=== PATIENT | male | born 1970 | race Caucasian/White ===

== ENCOUNTER 2020-07-05 20:10 | Emergency (ER) | payer BC ==
[2020-07-05 20:16] VITALS: BP 136/108; PULSE 71
[2020-07-05] MEDS ORDERED: HYDROmorphone 0.5 MG/0.5 ML Syringe IVPUSH ONE ×2 (21:32→22:37)
[2020-07-05] MEDS ORDERED: Lidocaine 1% 10 ML MDV INJECT ONE (21:32)
--- NOTE | 2020-07-05 21:38 | EDM.PDOC ---
ED HPI GENERAL MEDICAL PROBLEM - General Chief Complaint: Head Injury Stated Complaint: [facility] Time Seen by Provider: 07/05/20 21:19 Source of Information: Reports: Patient, RN Notes Reviewed History Limitations: Reports: No Limitations - History of Present Illness INITIAL COMMENTS - FREE TEXT/NARRATIVE: Patient is a 49-year-old male who is brought into the ER tonight by [facility] for the evaluation of a head injury. Patient states that he was at home, standing on a 3 foot ladder, trying to get a bird out of the garage, when he slipped and fell onto the garage floor. He hit the back of his head on the cement floor in the garage, he thinks that this was about 8 or 9 foot fall. He states that he did have a loss of consciousness, and notes that his found him on the floor in a pool of blood. notes that he was out for maybe 5 or 10 minutes, she is not really sure how he fell, but states that his left elbow does hurt as well. She did call the ambulance, they brought him here for evaluation. He did have a cervical collar in place, he is complaining of mild posterior neck pain. Patient is alert and oriented x3. He states he does have a headache, and does also have some pain in the area of the laceration on the back of his head. This is more of a stellate laceration. Not actively bleeding at this time. Patient does like to drink alcohol, states he did have 5 or 6 beers tonight. He states he does drink on a nightly basis. He denies any numbness or tingling into his extremities. He has no focal neurological deficits appreciated on initial exam. He further denies any fever/chills, cough/shortness of breath, nausea/vomiting/diarrhea. Treatments LEGAL INVESTIGATOR: Reports: IV/IO Posterior Headache Pain Score (Numeric/FACES): 8 - Related Data Allergies Allergy/AdvReac Type Severity Reaction Status Date / Time bee venom protein (honey bee) Allergy Anaphylactic Verified 07/05/20 20:16 Shock Penicillins Allergy Cannot Verified 07/05/20 20:16 Remember Home Meds: Home Meds . [No Known Home Meds] 01/06/16 [History] Past Medical History Musculoskeletal History: Reports: Back Pain, Chronic Endocrine/Metabolic History: Reports: Obesity/BMI 30+ - Past Surgical History Neurological Surgical History: Reports: Lumbar Spine, Sacral Spine Musculoskeletal Surgical History: Reports: Shoulder Surgery Other Musculoskeletal Surgeries/Procedures:: 10 Surgeries to the right shoulder, 2 surgeries to the left shoulder, wrist surgery, thumb surgery, hip surgery. Social & Family History - Tobacco Use Smoking Status *Q: Never Smoker - Caffeine Use Caffeine Use: Reports: Coffee - Alcohol Use Alcohol Use History: Yes Days Per Week of Alcohol Use: 7 Number of Drinks Per Day: 6 (beers) Total Drinks Per Week: 42 Alcohol Use Frequency: Daily - Recreational Drug Use Recreational Drug Use: No ED ROS GENERAL - Review of Systems Review Of Systems: Comprehensive ROS is negative, except as noted in HPI. ED EXAM, HEAD INJURY - Physical Exam Exam: See Below Exam Limited By: No Limitations General Appearance: Alert, WD/WN, No Apparent Distress Head: Normocephalic, Scalp Lacerations (Hematoma underneath the skin.Stellate laceration to the occipital portion of the patient's head. No active bleeding at this time.). No: [employer] Sign, Facial Ecchymosis, Facial Lacerations, Raccoon Eyes Nexus Criteria: Posterior, Midline Cervical Tenderness, Evidence of Intoxication (states that he had 5-6 beers tonight). No: Altered Level of Consciousness, Focal Neurological Deficit, Painful Distraction Injuries Eyes: Bilateral Eye: EOMI, Normal Inspection, PERRL Ears: Normal External Exam, Normal Canal, Hearing Grossly Normal, Normal TMs Nose: Normal Inspection Throat/Mouth: Normal Inspection, Normal Lips, Normal Teeth, Normal Gums, Normal Oropharynx, Normal Voice, No Airway Compromise Neck: Full Range of Motion, Normal Alignment, Normal Inspection, Tender Midline (Near the base of the skull) Respiratory: No Respiratory Distress, Lungs Clear, Normal Breath Sounds, No Accessory Muscle Use, Chest Non-Tender Cardiovascular: Normal Peripheral Pulses, Regular Rate, Rhythm, No Edema, No Murmur Extremities: Normal Inspection, Normal Capillary Refill Neurologic: business process manager II-XII nml As Tested, No Motor/Sensory Deficits, Alert, Normal Mood/Affect, Oriented x 3 Skin: Normal Color, Warm/Dry - Courtney Coma Score Best Eye Response ([place]): (4) Open Spontaneously Best Verbal Response ([place]): (5) Oriented Best Motor Response ([place]ney): (6) Obeys Commands Courtney Total: 15 ED LACERATION/WOUND & SARANYA PROC - Laceration/Wound Repair Posterior Head Lac/wound length in cm: 2 Appearance: Stellate, Clean Distal NVT: Neuro & Vascular Intact, No Tendon Injury Anesthetic Type: Local Local Anesthesia - Lidocaine (Xylocaine): 1% Plain Local Anesthetic Volume: 4cc Skin Prep: Chlorhexidine ([place]ib[place]), Saline Exploration/Debridement/Repair: Wound Explored, In a Bloodless Field, Explored to Base, No Foreign Material Found Closed with: Truong (6 truong placed to posterior head) Sterile Dressing Applied: Nurse Tetanus Status Addressed: Yes Complications: No Course - Vital Signs Last Recorded V/S: Last Vital Signs Temp 97.4 F 07/05/20 20:12 Pulse 71 07/05/20 20:12 Resp 16 07/05/20 20:12 BP 136/108 H 07/05/20 20:12 Pulse Ox 95 07/05/20 20:12 - Orders/Labs/Meds Orders: Active Orders 24 hr Category Date Time Status Cervical Spine wo Cont [CT] Stat Exams 07/05/20 21:31 Ordered Elbow Min 3V Lt [CR] Stat Exams 07/05/20 21:32 Ordered Head wo Cont [CT] Stat Exams 07/05/20 21:31 Ordered Meds: Medications Discontinued Medications Generic Name Dose Route Start Last Admin Trade Name Lucasq PRN Reason Stop Dose Admin Hydromorphone HCl 0.5 mg 07/05/20 21:32 07/05/20 21:38 Dilaudid IVPUSH 07/05/20 21:33 0.5 mg ONETIME ONE Administration Hydromorphone HCl 0.5 mg 07/05/20 22:37 07/05/20 22:53 Dilaudid IVPUSH 07/05/20 22:38 0.5 mg ONETIME ONE Administration Lidocaine HCl 10 ml 07/05/20 21:32 07/05/20 22:54 Xylocaine 1% INJECT 07/05/20 21:33 10 ml ONETIME ONE Administration - Re-Assessments/Exams Free Text/Narrative Re-Assessment/Exam: 07/05/20 21:38 Patient presents to the ED for evaluation of his head injury. Head and cervical spine without contrast CTs will be obtained. Elbow x-ray of his left elbow will be obtained to rule out bony abnormalities. Patient be given 0.5 mg IV Dilaudid for pain management. The head laceration will need to be fixed. Likely with truong. 07/05/20 22:[address] shows no acute intracranial processes are no bleeds. Neck CT also shows no fractures or other bony abnormalities. The elbow x-ray was over read by myself and Dr. Wang, there are no fat pad signs, and the patient has no obvious bony fracture or abnormality. Patient is able to move the elbow, he states that she is painful to do so. I would suggest that is unlikely that there is an occult fracture. Patient's head will be fixed at this time with truong, and he will be given general recommendations and discharged home. Departure - Departure Time of Disposition: 22:29 Disposition: Home, Self-Care 01 Condition: Good Clinical Impression: Head injury with loss of consciousness, Fall (on) (from) other stairs and steps, initial encounter - Discharge Information *PRESCRIPTION DRUG MONITORING PROGRAM REVIEWED*: No *COPY OF PRESCRIPTION DRUG MONITORING REPORT IN PATIENT [place]: No Instructions: Facial or Scalp Contusion, [id number], Concussion, Adult, [id number] Forms: ED Department Discharge Additional Instructions: You were evaluated in the ER today regarding your fall and head injury. Your head CT and neck CT demonstrated no fractures, bony abnormalities, and you had no bleed apparent in your head. You do have quite a large hematoma or bruise to the back of your head where the laceration is. Your laceration was repaired with skin truong, these may come out in 5 to 7 days. You may return to the ER, or any clinic to have these taken out. Please watch for any signs of infection, like redness, swelling, increased pain at the site of the laceration, this would be cause for concern to seek reevaluation. Please monitor your symptoms at home, regarding your head injury. It is likely that you will might have some lingering side effects, as you did hit your head quite hard today. Recommend you follow-up with your primary care provider, sometime by the end of this week for reevaluation and to make sure everything is getting better as expected. You may take 500 mg Tylenol or 600 mg ibuprofen every 6 hours as needed for further pain relief. Do not exceed 4000 mg Tylenol or 3200 mg ibuprofen in a 24-hour time span. Please return to the ER at any time if your symptoms change or worsen. Sepsis Event Note (ED) - Evaluation Sepsis Screening Result: No Definite Risk - Focused Exam Vital Signs: Vital Signs Temp Pulse Resp BP Pulse Ox 07/05/20 20:12 97.4 F 71 16 136/108 H 95 - My Orders Last 24 Hours: My Active Orders 07/05/20 21:31 Cervical Spine wo Cont [CT] Stat Head wo Cont [CT] Stat 07/05/20 21:32 Elbow Min 3V Lt [CR] Stat - Assessment/Plan Last 24 Hours: My Active Orders 07/05/20 21:31 Cervical Spine wo Cont [CT] Stat Head wo Cont [CT] Stat 07/05/20 21:32 Elbow Min 3V Lt [CR] Stat
--- NOTE | 2020-07-06 09:52 | CT ---
CT cervical spine Technique: Multiple axial sections were obtained from above C1 inferiorly to the top of T4. Reconstructed sagittal and coronal images were obtained. Comparison: No previous study. Findings: Mild degenerative change is noted between the dens and anterior arch of C1. Mild disc space narrowing is noted at C3-C4. Severe disc space narrowing is noted at C5-C6 and C6-C7 as well as within the upper thoracic spine. Posterior osteophytes are noted at C5-C6 and C6-C7 as well as at T2-T3. Vertebral body heights are maintained. Scattered degenerative apophyseal change is seen throughout the cervical spine. Moderate right-sided neural foraminal stenosis is noted C5-C6. Minimal right-sided neural foraminal stenosis is noted at C6-C7. Other neural foramina are patent. No discrete fracture is appreciated. No abnormal subluxation is seen. Right shoulder prosthesis is seen. 2 surgical anchors are noted within the left humeral head. Impression: 1. Degenerative change. Previous surgery within both shoulders. 2. No acute fracture or abnormal subluxation is appreciated. Diagnostic code #2 I agree with preliminary report issued by [facility] ([facility] preliminary report dictated on 07/05/20, 11:27 PM Central Daylight Time) Study was dictated in MDT
--- NOTE | 2020-07-06 09:55 | CR ---
Left elbow: 4 views of the left elbow were obtained. Comparison: No prior elbow study is available. Joint spaces are preserved. No acute fracture, dislocation or other bony abnormality is appreciated. Impression: 1. No abnormality is appreciated on left elbow study. Diagnostic code #1 Study was dictated in MDT
--- NOTE | 2020-07-06 09:55 | CT ---
Head CT Technique: Multiple axial sections through the brain were obtained. Intravenous contrast was not utilized. Comparison: No previous intracranial imaging is available. Findings: Diffuse soft tissue swelling and small hematoma is noted within the posterior scalp. Ventricles along with basal cisterns and sulci over the convexities are within normal limits for the patient's age. No abnormal parenchymal densities are seen. No evidence of intracranial hemorrhage. No midline shift or mass effect is seen. Visualized paranasal sinuses and mastoid sinuses show nothing acute. No acute calvarial finding is seen. Impression: 1. Diffuse soft tissue swelling within the posterior scalp with small associated scalp hematoma. 2. No acute intracranial abnormality is appreciated. Diagnostic code #3 Agree with preliminary report issued by [facility] ([facility] preliminary report dictated on 07/05/20, 11:26 PM Central Daylight Time) Study was dictated in MDT
== END 2020-07-05 23:33 | disposition home or self-care (01) ==
LOC: JD.ED 20:10
DX: S06.9X9A Unspecified intracranial injury with loss of consciousness of unspecified duration, initial encounter (principal); S01.01XA Laceration without foreign body of scalp, initial encounter; E66.9 Obesity, unspecified; Z68.32 Body mass index [BMI] 32.0-32.9, adult; Z88.0 Allergy status to penicillin; Z91.030 Bee allergy status; W10.8XXA Fall (on) (from) other stairs and steps, initial encounter
CPT/HCPCS: 12001; 70450; 72125; 73080; 96374; 99285; J1170; J2001; 99283

== ENCOUNTER 2021-02-26 11:37 | Emergency (ER) | payer BC ==
[2021-02-26 12:13] VITALS: BP 135/97; PULSE 77
[2021-02-26] MEDS ORDERED: Lidocaine 1% 10 ML MDV INJECT ONE (12:27)
--- NOTE | 2021-02-26 12:36 | EDM.PDOC ---
ED HPI GENERAL MEDICAL PROBLEM - General Chief Complaint: Skin Complaint Stated Complaint: FISHING HOOK STUCK IN FINGER Time Seen by Provider: 02/26/21 12:16 Source of Information: Reports: Patient History Limitations: Reports: No Limitations - History of Present Illness INITIAL COMMENTS - FREE TEXT/NARRATIVE: 50-year-old male presents to the emergency department with a fishhook stuck in his right thumb just lateral to the nailbed. Patient states that he had just gotten home and was putting his fishing supplies away when the hook caught him in the thumb. This happened just prior to arrival. Patient has no significant medical history and states he does not take [id number] medications. Right Finger-Thumb Pain Score (Numeric/FACES): 8 - Related Data Allergies Allergy/AdvReac Type Severity Reaction Status Date / Time bee venom protein (honey bee) Allergy Anaphylactic Verified 02/26/21 12:12 Shock Penicillins Allergy Cannot Verified 02/26/21 12:12 Remember Home Meds: Home Meds Doxycycline [Vibra-Tabs] 100 mg PO BID #16 tablet 02/26/21 [Rx] Past Medical History HEENT History: Reports: None Cardiovascular History: Reports: None Respiratory History: Reports: None Gastrointestinal History: Reports: None Genitourinary History: Reports: None Musculoskeletal History: Reports: Back Pain, Chronic Psychiatric History: Reports: None Endocrine/Metabolic History: Reports: Obesity/BMI 30+ Hematologic History: Reports: None Immunologic History: Reports: None Oncologic (Cancer) History: Reports: None Dermatologic History: Reports: None - Infectious Disease History Infectious Disease History: Reports: None - Past Surgical History Neurological Surgical History: Reports: Lumbar Spine, Sacral Spine Musculoskeletal Surgical History: Reports: Shoulder Surgery Other Musculoskeletal Surgeries/Procedures:: 10 Surgeries to the right shoulder, 2 surgeries to the left shoulder, wrist surgery, thumb surgery, hip surgery. Social & Family History - Tobacco Use Tobacco Use Status *Q: Never Tobacco User Second Hand Smoke Exposure: No - Caffeine Use Caffeine Use: Reports: Coffee - Recreational Drug Use Recreational Drug Use: No ED ROS GENERAL - Review of Systems Review Of Systems: Comprehensive ROS is negative, except as noted in HPI. ED EXAM, SKIN/RASH Exam: See Below Exam Limited By: No Limitations General Appearance: Alert, WD/WN, No Apparent Distress Ears: Normal External Exam, Hearing Grossly Normal Nose: Normal Inspection Throat/Mouth: Normal Inspection, Normal Lips, Normal Voice, No Airway Compromise Head: Atraumatic, Normocephalic Neck: Normal Inspection, Supple, Non-Tender, Full Range of Motion Respiratory/Chest: No Respiratory Distress, No Accessory Muscle Use GI/Abdominal: No Distention (Male) Exam: Deferred Rectal (Males) Exam: Deferred Back Exam: Normal Inspection, Full Range of Motion Extremities: Other ([place] noted to right medial thumb lateral the nailbed.) Neurological: Alert, Oriented, Normal Cognition Psychiatric: Normal Affect, Normal Mood Skin: Warm, Dry, Intact, Normal Color, No Rash, Wound/Incision ([place] noted to right medial thumb lateral the nailbed.) Location, Skin: Upper Extremity, Right Lymphatic: No Adenopathy ED SKIN PROCEDURES - Foreign Body Removal Indication:: fish hook in right thumb Consent Obtained:: Patient Performing Doctor:: Ty Wang Foreign Body Other Location Comment:: fish hook located right medial thumb lateral the nailbed. Anesthesia Type: Local (2ml lidocaine) Complications:: No Course - Vital Signs Text/Narrative:: I have ordered lidocaine 1% for a digital block. Last Recorded V/S: Last Vital Signs Temp 98.1 F 02/26/21 12:09 Pulse 77 02/26/21 12:09 Resp 18 02/26/21 12:09 BP 135/97 H 02/26/21 12:09 Pulse Ox 97 02/26/21 12:09 - Orders/Labs/Meds Orders: Active Orders 24 hr Category Date Time Status Fingers Thumb Rt F5 [CR] Stat Exams 02/26/21 12:27 Stop Req Meds: Medications Discontinued Medications Generic Name Dose Route Start Last Admin Trade Name Freq PRN Reason Stop Dose Admin Lidocaine HCl 10 ml 02/26/21 12:27 02/26/21 12:53 Lidocaine 1% 10 Ml Mdv INJECT 02/26/21 12:28 10 ml ONETIME ONE Administration Departure - Departure Time of Disposition: 13:00 Disposition: Home, Self-Care 01 Condition: Good Clinical Impression: Fish hook injury of right thumb Qualifiers: Encounter type: initial encounter Qualified Code(s): S69.91XA - Unspecified injury of right wrist, hand and finger(s), initial encounter - Discharge Information Prescriptions: Doxycycline [Vibra-Tabs] 100 mg PO BID #16 tablet Referrals: Татьяна [facility] [employer] SECURITY MANAGER [Primary Care Provider] - Forms: ED Department Discharge Additional Instructions: You were seen in the emergency department today with a fishhook in your right thumb. Local anesthetic was administered by way of a digital block. [place] was removed without incident. Wash your hand twice daily with mild soap and pat dry. May apply bacitracin and a bandage to the wound. May also soak the thumb in Epson salt three times daily. I have sent a prescription for doxycycline 100 mg to be taken twice daily for a total of 8 days. Should have wound rechecked late this week by her primary care physician. Watch for any signs or symptoms of infection such as increased swelling, redness or pus. Sepsis Event Note (ED) - Evaluation Sepsis Screening Result: No Definite Risk - Focused Exam Vital Signs: Vital Signs Temp Pulse Resp BP Pulse Ox 02/26/21 12:09 98.1 F 77 18 135/97 H 97 - My Orders Last 24 Hours: My Active Orders 02/26/21 12:27 Fingers Thumb Rt F5 [CR] Stat - Assessment/Plan Last 24 Hours: My Active Orders 02/26/21 12:27 Fingers Thumb Rt F5 [CR] Stat
== END 2021-02-26 13:14 | disposition home or self-care (01) ==
LOC: JD.ED 11:37
DX: S60.351A Superficial foreign body of right thumb, initial encounter (principal); E66.9 Obesity, unspecified; Z68.34 Body mass index [BMI] 34.0-34.9, adult; Z91.030 Bee allergy status; Z88.0 Allergy status to penicillin; W45.8XXA Other foreign body or object entering through skin, initial encounter
CPT/HCPCS: 64450; 99283; 99283-25